=== PATIENT | male | born 1965 | race Caucasian/White ===

== ENCOUNTER 2021-04-27 15:36 | Day surgery (SDC) | payer OTHER ==
[2021-04-20 15:32] LABS: BASOPHILS % (AUTO) 0.6 % (0-1); EOSINOPHILS # (AUTO) 0.1 X10'3 (0-0.9); EOSINOPHILS % (AUTO) 1.5 % (0-6); LYMPHOCYTES # (AUTO) 1.4 X10'3 (1.1-4.8); LYMPHOCYTES % (AUTO) 24.3 % (21-51); MEAN CORPUSCULAR HEMOGLOBIN 31.1 PG (27.0-31.0); MEAN CORPUSCULAR HGB CONC 34.2 g/dL (33.0-36.5); MEAN CORPUSCULAR VOLUME 90.9 FL (78-98); MEAN PLATELET VOLUME 8.5 FL (7.4-10.4); MONOCYTES # (AUTO) 0.9 X10'3 (0-0.9); MONOCYTES % (AUTO) 15.1 % (2-12); NEUTROPHILS # (AUTO) 3.4 X10'3 (1.8-7.7); NEUTROPHILS % (AUTO) 58.5 % (42-75); PRE OP HEMATOCRIT 43.1 % (42.0-52.0); PRE OP HEMOGLOBIN 14.7 g/dL (14.0-17.9); PRE OP PLATELET COUNT 222 X10'3 (140-440); RED BLOOD COUNT 4.73 X10'6 (4.70-6.10); RED CELL DISTRIBUTION WIDTH 12.9 % (11.5-14.5)
[2021-04-20 15:46] LABS: ALBUMIN 3.8 G/DL (3.4-5.0); ALBUMIN/GLOBULIN RATIO 1.1 (1.1-1.5); ALKALINE PHOSPHATASE 54 IU/L (46-116); BLOOD UREA NITROGEN 14 MG/DL (7-18); BUN/CREATININE RATIO 11.1 (5.4-32.0); CALCIUM 8.6 MG/DL (8.5-10.1); CHLORIDE 107 MMOL/L (99-107); CREATININE 1.26 MG/DL (0.60-1.10); PRE OP ALT 31 U/L (30-65); PRE OP ANION GAP 10 (8-16); PRE OP AST 20 U/L (10-37); PRE OP BILIRUB, TOTAL 0.3 MG/DL (0.0-1.0); PRE OP GLUCOSE 88 MG/DL (70-104); PRE OP POTASSIUM 3.8 MMOL/L (3.4-5.1); PRE OP SODIUM 143 MMOL/L (135-145); TOTAL CARBON DIOXIDE 25.8 MMOL/L (24-32); TOTAL PROTEIN 7.2 G/DL (6.4-8.2); eGFR 60 ML/MIN
[~2021-04-27] VITALS: Ht 172.7 cm; Wt 73.0 kg
[2021-04-27] VITALS (8 sets, daily range): BP systolic 116–129; BP diastolic 83–94
--- NOTE | 2021-04-27 15:10 | NUR ---
PT ARRIVED TO OR VIA GURNEY WITH DR NIÑO-ANESTHESIA, REPORT GIVEN, PAT WAKING UP, VSS, DENIES PAIN, LEFT ARM IN SLING WITH SHOULDER WRAP AND ICE PACK, DRSG-CDI, CSM INTACT, + CAP REFILL, PIV 20G TO RIGHT HAND-LR RUNNING AT 100ML/HR, SCDS ON,
[~2021-04-27 15:36] MED LIST: BUPIVAcaine/PF 2.5 mg/ml (0.25%) 30ml vial ONE; HYDROcodone/acetaminophen 10/325mg tab PO PRN; LIDOcaine 1%/PF 5ML 10 MG/ML VIAL ONE; NO HOME MEDS; ROPIVAcaine 0.2% (10 MG/5 ML) BOLUS INJECTION INTERSCALE PRN; ROPIVAcaine 0.2%/PF PUMP/bolus 545 ML INTERSCALE SCH; ROPIVAcaine 0.5% (5mg/ml) 30ml vial ONE; acetaminophen 1,000mg/100ml IV 100 ML IV ONE; albuterol 2.5 MG/3 ML nebule NEB ONE; ceFAZolin 2gm in dextrose, iso 50 ML IV ONE; dexamethasone sod phosphate 4mg/ml inj. ONE; famotidine 20mg tablet PO ONE; fentaNYL/PF 50MCG/1 ML 2ML syringe ONE; ketorolac trometh. 30mg/ml inj. ONE; meperidine/PF 25mg/ml syringe IV PRN; midazolam 1 mg/ML 2ml injection ONE; morphine 2 MG/ML inj. syringe IV PRN; morphine 4 MG/ML inj SYRINge IV PRN; ondansetron/PF 4mg/2ml inj IV PRN; ondansetron/PF 4mg/2ml inj ONE; proCHLORperazine 10 MG/2 ml inj IV PRN; propofol inj 20 ML IV ONE; ringers solution, lacted 1,000 ML IV SCH
--- NOTE | 2021-04-27 16:50 | NUR ---
PT UP AND GETTING DRESSED WITH ASSISTANCE, VSS, PT'S HOME SLING PLACED ON PT WITH ON-Q BALL ATTACHED-EDUCATION GIVEN TO PT AND REGARDING CARE AND D/C OF CATHETER (GIVEN PAMPHLET FOR BOTH), KRISTOPHER TO LEFT SHOULDER-CDI, CSM-INTACT, +CAP REFILL, PIV D/CD-CANULA INTACT, D/C INSTRUCTIONS GIVEN TO PT- ALL QUESTIONS ANSWERED, TAKEN WITH ALL BELONGINGS TO PHARMACY TO GET HOME MEDS STORED IN PHARM AND THEN TAKEN TO VEHICLE. DISCUSSED D/C ORDERS WITH DR KELLEY TO VERIFY.
== END 2021-04-27 16:50 | disposition home or self-care (01) ==
LOC: PRE-OP 15:36
PROVIDERS: ATTEND Orthopaedic Surgery
DX: M75.42 Impingement syndrome of left shoulder (principal); M75.52 Bursitis of left shoulder; M75.22 Bicipital tendinitis, left shoulder; G89.18 Other acute postprocedural pain; F17.210 Nicotine dependence, cigarettes, uncomplicated; Z79.899 Other long term (current) drug therapy; Z20.822 Contact with and (suspected) exposure to COVID-19; Z98.890 Other specified postprocedural states; Z72.89 Other problems related to lifestyle
CPT/HCPCS: 29824; 29826; 36415; 64416; 71046; 76937; 80053; 82948; 85025; 93005; A6402; J0131; J1100; J1885; J2250; J2405; J2704; J2795; J3010; J3490; J7120; U0003; U0005; Z7506; Z7508; Z7512; A4565; A4618; A6449; A7000